=== PATIENT | male | born 1980 | race Caucasian/White ===

== ENCOUNTER → 2017-08-26 11:09 | Outpatient (POV) | payer OTHER, SELFPAY | PROVIDERS: Visit Provider Physician Assistant | DX: Z00.00 Encounter for general adult medical examination without abnormal findings (principal) ==

== ENCOUNTER → 2017-10-30 20:35 | Outpatient (REF) | payer OTHER, SELFPAY | LOC: LAB 20:35 | PROVIDERS: Visit Provider Nurse Practitioner Family | DX: J02.9 Acute pharyngitis, unspecified (principal) ==

== ENCOUNTER → 2017-11-26 08:02 | Outpatient (POV) | payer OTHER, SELFPAY | PROVIDERS: Visit Provider Dermatology | DX: Z00.00 Encounter for general adult medical examination without abnormal findings (principal) ==

== ENCOUNTER → 2018-07-29 08:15 | Outpatient (POV) | payer OTHER, SELFPAY | PROVIDERS: Visit Provider Dermatology | DX: Z00.00 Encounter for general adult medical examination without abnormal findings (principal) ==

== ENCOUNTER → 2018-09-02 10:01 | Outpatient (POV) | payer OTHER, SELFPAY | PROVIDERS: Visit Provider Dermatology | DX: Z00.00 Encounter for general adult medical examination without abnormal findings (principal) ==

== ENCOUNTER → 2018-09-09 11:07 | Outpatient (POV) | payer OTHER, SELFPAY | PROVIDERS: Visit Provider Dermatology | DX: Z00.00 Encounter for general adult medical examination without abnormal findings (principal) ==

== ENCOUNTER → 2019-06-30 08:05 | Outpatient (CLI) | payer BC, SELFPAY ==
[2019-07-01 16:08] LABS: Covid-19 Nasal PCR Sendout Lex NOT DETECTED
== END ==
PROVIDERS: Visit Provider Urology
DX: Z03.818 Encounter for observation for suspected exposure to other biological agents ruled out (principal)
CPT/HCPCS: U0004

== ENCOUNTER 2019-07-02 07:30 | Day surgery (SDC) | payer BC, SELFPAY ==
--- NOTE | 2019-06-29 09:52 | SUR.PREOP ---
06/29/2019 @ 0952--PHONE CALL MADE TO PATIENT. PATIENT UNDERSTANDS THAT LAB WORK AND COVID TESTING NEEDS TO BE COMPLETED @ 0800 ON 06/30/2019. PATIENT UNDERSTANDS IF LAB WORK AND COVID-19 TESTS ARE NOT COMPLETED BY 12PM ON THAT DATE, THE SURGERY SCHEDULED WILL BE CANCELLED AND RESCHEDULED FOR ANOTHER TIME.
[2019-07-01 10:17] VITALS: BMI 25.7
[2019-07-02 07:44] VITALS: BP 139/85; PULSE 57; RESP 18; TEMP 36.3; O2SAT 97
--- NOTE | 2019-07-02 08:07 | HMH.ANESCL ---
[facility] Anesthesia Checklist - Patient Identification Patient Identification: Arm Band, Verbal (Name & ) - Structural Data Admitted From: Home Planned Operative Procedure/s: vasectomy Consent for Planned Operative Procedure(s) Verified: Yes Verified Documents: History and Physical - NPO Status Verified Time NPO: 00:00 - Additional verifications Patient : No Anesthesia Reactions: No Hx Blood Transfusions: No Blood Transfusion Reaction: No Cephalosporin Allergy: No Previous Colonoscopy: No - Cardiovascular Assessment Heart Sounds: S1 & S2 Pulse Strength: Baseline Pulse Rhythm: Regular Peripheral Edema: No - Airway Assessment C-Spine Mobility Assessed: Yes TMJ Mobility Assessed: Yes Dentition: Good Dentition - Neurological Assessment Level of Consciousness: Awake, Alert, Appropriate Hx Seizures: No Numbness or tingling in extremities: No - Anesthesia Plan Anesthesia Risk discussed: Yes Anesthesia Plan: Verified ASA Class: I Anesthesia Type: MAC [facility] History I have reviewed the patient's past medical history: Yes Medical History: Denies:: Cancer, Diabetes Mellitus Type 1, Diabetes Mellitus Type 2, Internal Pacemaker, MRSA, Seizures *Have you ever received a pneumonia vaccine?: No *Have you received a flu vaccine this season?: Yes Other Medical History: Denies: Blood Transfusion Reaction Anesthesia experience/problems:: none Laterality Cases: Left: Other, Bilateral: Tonsillectomy Other Surgeries: Yes: No Previous Surgery, Appendectomy, Cholecystectomy, Other. No: Pacemaker Amputation: No Fractures: Yes - *Social History Educational Level: Completed Graduate School Smoking Status: Never smoker Alcohol Intake: never Substance Use Type: denies use *Occupational Status:: employed Housing: house Household Members: spouse *Travel in the last 8 weeks: None Family Hx:: Coronary Artery Disease, Heart Attack, Hyperlipidemia, Hypertension
[2019-07-02 09:55] VITALS: BP 123/72; PULSE 65; RESP 18; TEMP 36.1; O2SAT 96
[2019-07-02 10:05] VITALS: BP 130/75; PULSE 53; RESP 18; O2SAT 97
[2019-07-02 10:15] VITALS: BP 120/81; PULSE 58; RESP 18; O2SAT 98
[2019-07-02 10:27] VITALS: BP 128/70; PULSE 60; RESP 18; O2SAT 98
--- NOTE | 2019-07-02 12:39 | HMH.OPNOTE ---
Date of procedure: 07/02/19 Pre-op Diagnosis:: Sterilization Post-op Diagnosis:: Same Procedure performed:: Vasectomy Surgeon:: Finn Dumont MD REGIONAL PROPERTY MANAGER:: Jonny Ambriz Anesthesia: MAC Estimated blood loss (mL): 2 Clinical Note:: 38-year-old white male seen in the office 2 months ago for vasectomy consultation presents for the procedure today. Operative findings:: Scrotal exam shows normal size testicles without masses. Procedure performed without complication. Operative note:: Patient taken to the operating room after informed consent was obtained. He was placed on the operating table in the supine position and monitored anesthesia care administered. He was prepped and draped in the standard surgical fashion. Preoperative antibiotics administered. Scrotal and testicular exam were within normal limits. Left vas was easily palpable and brought up to the midline raphae. Local anesthetic placed in and around the left vas and an incision was made in the skin and the tenaculum was used to grasp the vas deferens and it was brought up through the skin incision. The basal sheath was then incised and the vas proper was dissected from its surrounding adventitia and vascular structures. A single clip was placed distally and 2 clips were placed proximally. A 1 cm segment was then excised and the lumen of the vas was cauterized proximally and distally. Hemostasis achieved and the left vas dropped back into the left hemiscrotum. The right vas was brought up through the same incision and local anesthetic placed in and around the right vas. The identical procedure was performed on the right side. The right vas was then dropped back into the hemiscrotum and a 3-0 chromic was placed in a horizontal mattress type fashion to close the incision. Compression dressing then applied. Patient tolerated the procedure well without complication. Condition: stable Disposition: same day Specimens:: None Complications:: None
== END 2019-07-02 10:37 | disposition home or self-care (01) ==
PROVIDERS: PCP Physician Assistant; Visit Provider Urology
PROC: (CPT 55250; principal; 2019-07-02 09:00)
DX: Z30.2 Encounter for sterilization (principal); Z90.49 Acquired absence of other specified parts of digestive tract; Z82.49 Family history of ischemic heart disease and other diseases of the circulatory system; Z83.438 Family history of other disorder of lipoprotein metabolism and other lipidemia
CPT/HCPCS: 55250; 96374

== ENCOUNTER → 2020-04-18 16:00 | Outpatient (CLI) | payer BC, SELFPAY ==
--- NOTE | 2020-04-18 16:06 | XR_ITS ---
PROCEDURE: XR TIBIA FIBULA RT 2V CLINICAL INDICATION: PAIN IN RT NELSON COMPARISON: No exams were available for comparison FINDINGS: No fracture or dislocation. No lytic or blastic change. There is normal mineralization. The joint spaces are well-preserved. No significant degenerative/arthritic changes. No erosive changes evident. Other findings:None. IMPRESSION: No acute findings. Dictated by: Mumtaz Madrigal MD 04/19/2020 07:21 Mumtaz Madrigal MD in [facility] 04/19/2020 07:21
== END ==
PROVIDERS: PCP Family Medicine; Visit Provider Family Medicine
DX: M79.661 Pain in right lower leg (principal)
CPT/HCPCS: 73590

== ENCOUNTER → 2020-05-09 14:02 | Outpatient (CLI) | payer BC, SELFPAY ==
--- NOTE | 2020-05-09 14:09 | MR_ITS ---
PROCEDURE: MR LOWER LEG RT WO CON CLINICAL INDICATION: PAIN IN RIGHT NELSON COMPARISON: No exams were available for comparison TECHNIQUE: Routine multiplanar multi echo sequences are performed without gadolinium enhancement. FINDINGS: At the site of marker placement there is no significant soft tissue abnormality. No evidence of soft tissue edema. The tibia appears normal in appearance without evidence of marrow signal abnormality. No evidence of cortical irregularity is noted. No evidence of periosteal edema noted. The muscle compartments are within normal limits. IMPRESSION: No evidence of periostitis. Unremarkable MRI of the right lower extremity. Dictated by: Lottie Ryder 05/10/2020 08:06 Lottie Ryder in [facility] 05/10/2020 08:06
== END ==
PROVIDERS: PCP Family Medicine; Visit Provider Family Medicine
DX: M79.661 Pain in right lower leg (principal)
CPT/HCPCS: 73718

== ENCOUNTER → 2021-02-09 11:15 | Outpatient (CLI) | payer BC, SELFPAY | PROVIDERS: Visit Provider Nurse Practitioner | DX: Z20.822 Contact with and (suspected) exposure to COVID-19 (principal) | CPT/HCPCS: C9803; U0003; U0005 ==

== ENCOUNTER → 2021-02-27 12:19 | Outpatient (CLI) | payer BC, SELFPAY | PROVIDERS: PCP Family Medicine; Visit Provider Nurse Practitioner | DX: Z20.822 Contact with and (suspected) exposure to COVID-19 (principal) | CPT/HCPCS: C9803; U0003; U0005 ==

== ENCOUNTER → 2021-03-02 12:24 | Outpatient (CLI) | payer BC, SELFPAY | PROVIDERS: Visit Provider Nurse Practitioner | DX: Z20.822 Contact with and (suspected) exposure to COVID-19 (principal) | CPT/HCPCS: C9803; U0003; U0005 ==

== ENCOUNTER → 2021-03-07 08:09 | Outpatient (CLI) | payer BC, SELFPAY | PROVIDERS: PCP Family Medicine; Visit Provider Internal Medicine Adolescent Medicine | DX: U07.1 COVID-19 (principal); R05.9 Cough, unspecified | CPT/HCPCS: C9803; U0003; U0005 ==

== ENCOUNTER → 2021-03-20 15:13 | Outpatient (CLI) | payer BC, SELFPAY ==
--- NOTE | 2021-03-20 15:19 | XR_ITS ---
FINAL REPORT CLINICAL HISTORY: COUGH since he had covid 2 weeks ago...OBSTRUCTIVE LUNG DISEASE..non smoker FINDINGS: 2 views of the chest were obtained . The heart is normal in size. The mediastinum is within normal limits. The lungs are clear. There is no pneumothorax. Osseous structures are unremarkable. IMPRESSION: No acute cardiopulmonary process. Reviewed, Interpreted and Dictated by Damaso Delarosa III, MD Transcribed by Monalisa San Authenticated by Damaso Delarosa III, MD on 03/20/2021 04:12:41 PM [facility]
== END ==
PROVIDERS: PCP Internal Medicine Adolescent Medicine; Visit Provider Internal Medicine Adolescent Medicine
DX: R05.9 Cough, unspecified (principal); J44.9 Chronic obstructive pulmonary disease, unspecified
CPT/HCPCS: 71046

== ENCOUNTER → 2021-04-04 16:17 | Outpatient (CLI) | payer BC, SELFPAY ==
--- NOTE | 2021-04-04 16:21 | XR_ITS ---
PROCEDURE INFORMATION: Exam: XR Chest Exam date and time: 04/04/2021 4:21 PM Age: 40 years old Clinical indication: Patient HX: Patient has had a cough since positive covid 5 weeks ago; . Non-smoker; Additional info: Cronic cough TECHNIQUE: Imaging protocol: XR of the chest. Views: 2 views. COMPARISON: CR XR CHEST 2V 03/20/2021 3:26 PM FINDINGS: Tubes, catheters and devices: Surgical clips, RUQ. Lungs: Mild biapical linear atelectasis/fibrosis. No evidence of an active pulmonary process. No new focal consolidation. Pleural spaces: Unremarkable. No pleural effusion. No pneumothorax. Heart/Mediastinum: Unremarkable. No cardiomegaly. Bones/joints: Scoliosis and mild spondylosis. Old left clavicle fracture. IMPRESSION: No evidence of an active pulmonary process. Otherwise, as above.
== END ==
PROVIDERS: PCP Internal Medicine Adolescent Medicine; Visit Provider Internal Medicine Adolescent Medicine
DX: R05.8 Other specified cough (principal); U09.9 Post COVID-19 condition, unspecified
CPT/HCPCS: 71046

== ENCOUNTER 2021-05-06 09:04 | Emergency (ER) | payer BC, SELFPAY ==
[2021-05-06 09:23] VITALS: BP 134/91; PULSE 73; RESP 18; TEMP 36.6; O2SAT 96; BMI 28.3
--- NOTE | 2021-05-06 09:31 | HMH.EDUTC ---
[facility] [place] Disposition Clinical Impression: Pharyngitis Qualifiers: Pharyngitis/tonsillitis etiology: unspecified etiology Qualified Code(s): J02.9 - Acute pharyngitis, unspecified Disposition: Home, Self-Care Condition on Discharge: Good Instructions: DI for Pharyngitis/Tonsillopharyngitis -- Adult, Sore Throat Additional Instructions: Drink plenty of fluids. Take tylenol or ibuprofen for pain or fever. Take the medications as directed. Follow up with your regular doctor. GO TO THE ER FOR ANY WORSENING SYMPTOMS Prescriptions: Brompheniramine/Pseudoephed/Dm [Bromfed Dm Cough Syrup] 5 ml PO Q6HP PRN #240 ml PRN Reason: Cough Transmission Status: Pending to [facility] Amoxicillin/Potassium Clav [Amox-Clav 875-125 mg Tablet] 1 tab PO BID #20 tab Transmission Status: Pending to [facility] methylPREDNISolone [Medrol] 4 mg PO DIRECTED 6 Days #21 packet Transmission Status: Pending to [facility] Referrals: Luis Alberto Maradiaga MD [Primary Care Provider] - Time of Disposition: 10:10 Medical Decision Making - Medical Records Medical records reviewed: No: I reviewed the patient's medical records. - Taras Inquiry Pt receiving controlled substance: No Vital Signs: 05/06/21 09:23 Temperature 97.8 F Temperature Source Temporal Artery Scan Pulse Rate [Right] 73 Respiratory Rate 18 Blood Pressure [Right Arm] 134/91 H Blood Pressure Mean [Right Arm] 105 02 Sat by Pulse Oximetry 96 - Lab Data Lab results reviewed: Yes: I reviewed the patient's lab results. Lab Results 05/06/21 09:17: Group A Strep Rapid Negative Orders (Tests/Meds): ORDERS Category Date Time Status Strep Screen Confirmation Stat Micro 05/06/21 09:17 Received [facility] [place] HPI - General Stated complaint: sore throat, headache Time Seen by Provider: 05/06/21 09:31 Mode of Arrival: Ambulatory Source of Information: Patient Limitations: No Limitations Description of Symptoms (Recalled from Triage Doc. by RN): pt c/o a sore throat and VARGAS. HEENT Symptoms (Recalled from RN notes): Yes Resp Symptoms (Recalled from RN notes): No Skin Symptoms (Recalled from RN notes): No MS Symptoms (Recalled from RN notes): No Functional Status (Recalled from RN notes): wnl - History of Present Illness Provider Complaint: He states that he has had a sore throat for the past 2 days. - Related Data Home Medications Medication Instructions Recorded Confirmed levocetirizine 5 mg tablet 5 mg PO DAILY 90 Days #90 tab 10/30/17 05/05/20 montelukast 10 mg tablet 10 mg PO DAILY 90 Days #90 tab 10/30/17 05/05/20 Previous Rx's Medication Instructions Recorded Amoxicillin/Potassium Clav 1 tab PO BID #20 tab 05/06/21 [Amox-Clav 875-125 mg Tablet] Brompheniramine/Pseudoephed/Dm 5 ml PO Q6HP PRN #240 ml 05/06/21 [Bromfed Dm Cough Syrup] methylPREDNISolone [Medrol] 4 mg PO DIRECTED 6 Days #21 05/06/21 packet Allergies Allergy/AdvReac Type Severity Reaction Status Date / Time erythromycin base Allergy Intermediate Verified 05/05/20 17:29 - Worker's Comp Is this a Worker's Comp case?: No [facility] History - Hepatitis A Screen Drug use history?: No High risk sexual behaviors?: No History of sexually transmitted infection?: No Currently employed?: No Childcare worker?: No Do you have indoor plumbing?: Yes Do you have electricity?: Yes Attestation statement:: This patient has been screened for Hepatitis A risk factors. I have reviewed the patient's past medical history: Yes Medical History: Denies:: Cancer, Diabetes Mellitus Type 1, Diabetes Mellitus Type 2, Internal Pacemaker, MRSA, Seizures Other Medical History: Denies: Blood Transfusion Reaction Laterality Cases: Left: Other, Bilateral: Tonsillectomy Other Surgeries: Yes: No Previous Surgery, Appendectomy, Cholecystectomy, Other. No: Pacemaker Amputation: No Fractures: Yes Comment: hand, colar bone, crack sternum - Social History S
[2021-05-06 09:57] LABS: Strep Scrn Group A (Rapid) Negative (Negative)
[2021-05-06 10:29] VITALS: BP 134/91; PULSE 73; RESP 18; TEMP 36.6
== END 2021-05-06 10:30 | disposition home or self-care (01) ==
PROVIDERS: Emergency Provider Nurse Practitioner Family; PCP Family Medicine
DX: J02.9 Acute pharyngitis, unspecified (principal)
CPT/HCPCS: 87430; 99212; G0463

== ENCOUNTER 2021-08-18 08:00 | Outpatient (RCR) | payer BC, SELFPAY ==
--- NOTE | 2021-08-02 08:57 | HMH.PTOPEV ---
PT Outpatient Evaluation Rehab PT Outpatient Evaluation Start: 08/02/21 08:41 Freq: Status: Active Protocol: Document 08/02/21 08:41 TIKI (Rec: 08/02/21 08:56 TANIAGISSEL [id number]) Electronically Signed By Harish Jean Baptiste, PT 08/02/21 08:41 Outpatient Therapy Subjective History Subjective History Patient is a 41 year old male presenting to outpatient PT with reports of L sided cervical spine pain with related LUE radicular specifically to the C6 dermatome. Symptoms of insidious onset starting approximately 1 month ago. Symptoms consistent with thoracic outlet syndrome. Patient presents with full AROM and MMT. Nerve tension testing elicit symptoms. Comorbidities include hx of L shoulder labral repair and L clavicle fx. No recent imaging to report. Chief Complaint Pain,Paresthesia Symptom Type Ache,Sharp Symptoms Relieved By Rest/Positioning Symptoms Aggravated By Physical Activity,Lifting Prior Functional Limitations None Current Functional Limitations Reaching,Lifting,Housework, Recreation Activity Symptom Description Constant but Variable Level of pain today (0-10) 1 Pain scale - at its best (0-10) 1 Pain scale - at its worst (0-10) 8 Cervical Eval Palpation Cervical Muscles L SCM,L Upper Trapezius Cervical/Thoracic Palpation Findings Tenderness Posture Head/C-Spine Posture Sitting Position Flexed Head/C-Spine Posture Standing Position Neutral Position Flexibility Deficits Upper Trapezius Muscle Length (L) Moderate Tightness Levaetor Scapulae Muscle Length (L) Moderate Tightness Scalene Group Muscle Length (L) Moderate Tightness Pectoralis Major Muscle Length (L) Moderate Tightness Pectoralis Minor Muscle Length (L) Moderate Tightness Passive Joint Mobility Cervical PIVM WNL: R OA L OA R AA L AA R C2/3 L C2/3 R C3/4 L C3/4 R C4/5 L C4/5 R C5/6 L
== END 2021-08-18 08:05 | disposition home or self-care (01) ==
LOC: PT 08:00
PROVIDERS: PCP Family Medicine; Visit Provider Family Medicine
DX: M25.512 Pain in left shoulder (principal)
CPT/HCPCS: 20560; 97010; 97014; 97110; 97163; G0283

== ENCOUNTER → 2021-10-25 17:03 | Outpatient (CLI) | payer BC, SELFPAY ==
[2021-10-25 18:28] LABS: Basophils # 0.1 K/mm3 (0-0.2); Basophils % 0.9 % (0.1-2.0); Eosinophils # 0.3 K/mm3 (0.0-0.4); Eosinophils % 3.9 % (0.1-12.0); Hematocrit 45.5 % (42.0-52.0); Hemoglobin 14.8 g/dL (14.1-18.0); Lymphocytes # 1.7 K/mm3 (0.7-4.5); Mean Corpuscular HGB Conc 32.5 g/dL (31.8-35.4); Mean Corpuscular Hemoglobin 31.1 pg (27.0-31.2); Mean Corpuscular Volume 95.7 fl (80-94); Mean Platelet Volume 8.7 fl (7.4-10.4); Monocytes # 0.5 K/mm3 (0.1-1.0); Neutrophils # 3.9 K/mm3 (1.8-7.8); Neutrophils % 60.3 % (37.0-80.0); Platelet Count 301 K/mm3 (142-424); Red Blood Count 4.75 M/mm3 (4.60-6.20); Red Cell Distribution Width 13.2 % (11.5-17.5); White Blood Count 6.4 K/mm3 (4.8-10.8)
== END ==
PROVIDERS: PCP Physician Assistant; Visit Provider Physician Assistant
DX: Z20.822 Contact with and (suspected) exposure to COVID-19 (principal)
CPT/HCPCS: 36415; 85025; C9803; U0003; U0005

== ENCOUNTER 2023-10-08 12:43 | Outpatient (CLI) | payer BC, SELFPAY ==
--- NOTE | 2023-10-08 12:46 | US_ITS ---
FINAL REPORT CLINICAL HISTORY: BILATERAL/ABNRML CREATININE COMPARISON: None FINDINGS: RENAL ULTRASOUND Ultrasound images of the kidneys were obtained. The right kidney measures 11.1 cm in length. It is normal echogenicity. There is no hydronephrosis. The left kidney measures 11.2 cm in length. It is normal echogenicity. There is no hydronephrosis. IMPRESSION: Normal renal ultrasound. Reviewed, Interpreted and Dictated by López Marie MD Transcribed by Katie Rich Authenticated and [facility]
== END 2023-10-08 23:59 | disposition home or self-care (01) ==
LOC: RAD 12:44
PROVIDERS: PCP Nurse Practitioner Family; Visit Provider Nurse Practitioner Family
DX: R94.4 Abnormal results of kidney function studies (principal)
CPT/HCPCS: 76770

== ENCOUNTER 2024-03-21 17:53 | Emergency (ER) | payer BC, SELFPAY ==
[2024-03-21 18:08] VITALS: BP 157/93; PULSE 68; RESP 18; TEMP 37.1; O2SAT 98; BMI 30.8
--- NOTE | 2024-03-21 18:22 | ED_ITS ---
Discharge Plan Disposition Patient Disposition: Home, Self-Care Condition: Good Prescriptions Prescriptions: New oseltamivir [Tamiflu] 75 mg capsule 75 mg PO BID 5 Days Qty: 10 0RF No Action montelukast 10 mg tablet 10 mg PO DAILY 90 Days Qty: 90 levocetirizine 5 mg tablet 5 mg PO DAILY 90 Days Qty: 90 tamsulosin 0.4 mg capsule 0.4 mg PO DAILY Referrals Follow up/Referrals: Felicita Fisher APRN [Primary Care Provider] - See instructions Activity Restrictions/Add. Instructions Additional Instructions/Restrictions: No sign of a bacterial infection. Viruses can take 7-14 days to run their course. Nasal saline and bulb syringe or nose Esther to remove nasal drainage to help with nasal congestion. Hard to eat, drink, sleep with nasal congestion so important to keep this cleaned out. Monitor temp. Tylenol or Motrin as needed for pain or fever Encourage fluids, water, Gatorade, Powerade, Pedialyte if /toddler/child Warm salt water gargles Warm fluids Sore throat lozenges Sleep elevated Humidifier/vaporizer Follow-up immediately for new or worsening symptoms or no noticeable improvement over the next 48-72 hours. Clinical Impressions Clinical Impression: Exposure to influenza, Upper respiratory infection, viral Instructions Patient Instructions: DI for Viral Upper Respiratory Infection -- Adult Print Language Print Language: Turkmen Discharge ED Provider: Ike ([facility])Ursula [facility] HPI General Stated complaint: exp flu- chest annemarie Mode of Arrival: Ambulatory Source of Information: Patient Time Seen by Provider: 03/21/24 18:15 Description of Symptoms (Recalled from Triage Doc. by RN): FLU EXP BY , COUGH, TIGTNESS, IN UPPER CHEST HEENT Symptoms (Recalled from RN notes): No Resp Symptoms (Recalled from RN notes): Yes Skin Symptoms (Recalled from RN notes): No MS Symptoms (Recalled from RN notes): No Functional Status (Recalled from RN notes): WNL History of Present Illness Provider Complaint: 43-year-old male presents for cough, tightness in upper chest with coughing. has flu Related Data Home Medications ?Medication ?Instructions ?Recorded ?Confirmed levocetirizine 5 mg tablet 5 mg PO DAILY Allergy symptoms 10/30/17 03/21/24 days #90 tabs montelukast 10 mg tablet 10 mg PO DAILY Allergy symptoms 90 10/30/17 03/21/24 days #90 tabs tamsulosin 0.4 mg capsule 0.4 mg PO DAILY 03/21/24 03/21/24 Previous Rx's ?Medication ?Instructions ?Recorded oseltamivir 75 mg capsule (Tamiflu) 75 mg PO BID 5 days #10 caps 03/21/24 Allergies Allergy/AdvReac Type Severity Reaction Status Date / Time erythromycin base Allergy Intermediate Verified 07/14/21 15:27 Worker's Comp Is this a Worker's Comp case?: No [facility] Disclaimer: The information contained in this section may have been updated after the patient was seen, as this information can be updated by other users. Social History (Reviewed 03/21/24 @ 18:23 by Ursula Ramires ([facility]), [employer] OFFICER) Smoking Status: Never smoker alcohol intake: never substance use type: denies use current occupational status: employed Travel in the last 8 weeks: None household members: spouse housing: house current occupation: [employer] caffeine: Yes Have you lived/traveled outside [place] in past 30 days?: No Contact w/someone who lives/traveled outside US past 30 days?: No Exposure to someone with infectious disease in past 14 days?: No Do you have a fever (greater than 100.4 F or 38 C)?: No Have you tested positive for COVID-19: No Exposed to someone with COVID-19 in past 14 days?: No Do you have a sore throat?: No Do you have a cough?: No Do you have any weakness?: No Do you have any diarrhea?: No Are you experiencing any unusual bleeding?: No Do you have any muscle aches/pain?: No Do you have any abdominal pain?: No Are you experiencing loss of taste or smell?: No ROS Obtained: Yes Systems reviewed as appropriate & no additional complaints except as documented Physical Exam General General appearance: alert and in no apparent distress Eye Eye exam: Present normal appearance and PERRL ENT ENT exam: Present normal exam, normal oropharynx, mucous membranes moist, TM's normal bilaterally and normal external ear exam Chest Chest inspection: Present normal inspection and symmetric chest wall rise; Abs ent tenderness Respiratory Respiratory exam: Present normal lung sounds bilaterally; Absent respiratory distress Cardiovascular Cardiovascular exam: Present regular rate and normal rhythm; Absent JVD Extremities Exam Extremities exam: Present normal inspection, full ROM and normal capillary refill; Absent calf tenderness Neurological Exam Neurological exam: Present alert and oriented X3 Skin Skin exam: Present warm, dry, intact and normal color Lymphatic Lymphatic Findings: no adenopathy Medical Decision Making Medical Records Medical records reviewed: Yes I reviewed the patient's medical records. Screening: Per USPSTF and CDC recommendations, given the prevalence of disease in our region, it is our hospital?s policy to screen for HIV and viral Hepatitis for all patients aged 18 and over and those with ongoing risk factors. Taras Inquiry Pt receiving controlled substance: No Vital Signs: 03/21/24 18:08 Temperature 98.8 F Temperature Source Oral Pulse Rate [Left Radial] 68 Respiratory Rate 18 Blood Pressure [Left Arm] 157/93 H Blood Pressure Mean [Left Arm] 114 02 Sat by Pulse Oximetry 98 Lab Data Lab results reviewed: Yes I reviewed the patient's lab results.
[2024-03-21 18:26] LABS: UTC Influenza A Antigen Negative (Negative)
[2024-03-21 18:27] LABS: UTC Influenza B Antigen Negative (Negative)
[2024-03-21 18:38] VITALS: BP 157/93; PULSE 68; RESP 18; TEMP 37.1
[2024-03-21 19:24] LABS: Coronavirus 19, PCR Not Detected (NotDetected); Influenza A, PCR Not Detected (NotDetected); Influenza B, PCR Not Detected (NotDetected)
== END 2024-03-21 18:39 | disposition home or self-care (01) ==
PROVIDERS: Emergency Provider Nurse Practitioner Family; PCP Nurse Practitioner Family
DX: J06.9 Acute upper respiratory infection, unspecified (principal)
CPT/HCPCS: 87636; 87804; 99213; G0381